=== PATIENT | female | born 1930 | race Caucasian/White ===

== ENCOUNTER 2017-10-30 11:17 | Emergency (ER) | payer MEDICARE ==
[~2017-10-30] VITALS: Ht 162.6 cm; Wt 81.2 kg
[~2017-10-30 11:17] MED LIST: ALAVERT10 MG SL; AMLODIPINE BESY10 MG PO; ASPIR-LOW81 MG PO; CALCIUM 600 +1 EAC8 PO; CENTRUM SILVER1 EAC3 PO; FISH OIL 1,2001 EACH PO; FLUZONE; FOLIC ACID0.4 MG PO; GLUCOPHAGE1000 MG PO; IMODIUM A-D2 M1 PO; LIPITOR20 MG PO; LIPITOR40 MG PO; LISINOPRIL/HCTZ PO; LISINOPRIL10 MG PO; MELOXICAM7.5 MG PO; METFORMIN HCL500 M1 PO; METOPROLOL TART25 MG PO; MUCINEX600 MG PO; PANTOPRAZOLE SO40 MG PO; PNEUMOVAX; TENORMIN50 MG PO; TYLENOL EXTRA500 MG PO; ULTRAM 50MG50 MG PO; VITAMIN E400 UNI1 PO; ZANTAC 7575 MG PO
[2017-10-30 12:04] LABS: BASOPHILS % 0.5 % (0.0-1.0); EOSINOPHILS # (AUTO) 0.2 (0.0-0.4); EOSINOPHILS % 1.9 % (0.0-6.0); HEMATOCRIT 44.9 % (34.2-44.1); HEMOGLOBIN 14.7 g/dL (12.0-16.0); LYMPHOCYTES # (AUTO) 1.2 (1.0-3.2); LYMPHOCYTES % 14.2 % (18.0-39.1); MEAN CORPUSCULAR HEMOGLOBIN 30.1 pg (28-32); MEAN CORPUSCULAR HGB CONC 32.7 g/dL (31-35); MEAN CORPUSCULAR VOLUME 91.8 fL (81-99); MONOCYTES # (AUTO) 0.8 (0.2-0.8); MONOCYTES % 9.5 % (4.4-11.3); NEUTROPHILS # (AUTO) 6.1 (2.1-6.9); NEUTROPHILS % 73.5 % (38.7-80.0); PLATELET COUNT 265 x10e3/uL (140-360); RED BLOOD COUNT 4.89 x10e6/uL (3.6-5.1); RED CELL DISTRIBUTION WIDTH 15.1 % (11.7-14.4)
[2017-10-30 12:44] LABS: ALBUMIN/GLOBULIN RATIO 1.1 (0.8-2.0); ANION GAP 16.8 mmol/L (8-16); CALCIUM 10.6 mg/dL (8.4-10.2); CREATININE, SERUM 1.26 mg/dL (0.57-1.11); POTASSIUM 4.8 mmol/L (3.5-5.1)
[2017-10-30 12:50] LABS: CREATINE KINASE MB 1.5 ng/mL (0-5.0)
--- NOTE | 2017-10-30 14:41 | Diagnostic Imaging Report ---
EXAMINATION: Head CT without contrast HISTORY: Dizziness, nauseated. COMPARISON: None. TECHNIQUE: Multidetector axial images were obtained without contrast from the foramen magnum to the vertex . The images were reconstructed using brain and bone algorithms. Thin section brain images were reformatted into coronal and sagittal planes. Image quality: Motion/streaking artifact limits the evaluation of the skull base and posterior cranial fossa. Dose modulation, iterative reconstruction, and/or weight based adjustment of the mA/kV was utilized to reduce the radiation dose to as low as reasonably achievable. FINDINGS: Parenchyma: 1. No abnormal densities. 2. No mass or hemorrhage. No CT evidence of acute territorial vascular insult. Extra-axial spaces:No abnormal density. No extra-axial fluid collections Brain volume: Normal for age. Ventricles: No hydrocephalus or displacement. Arteries: No density suggestive of thrombus. Dural sinuses: No abnormal density. Extra-axial spaces: No abnormal density. Foramen magnum: No mass, Chiari malformation, or basilar invagination. Sella: No obvious mass. Paranasal/mastoid sinuses: Imaged portions unremarkable. Skull/Scalp: No lytic or blastic lesions. No fractures. IMPRESSION: Normal head CT. Signed by: Dr. Danae Jeong M.D. on 10/30/2017 2:38 PM
--- NOTE | 2017-10-30 14:46 | Diagnostic Imaging Report ---
EXAMINATION: CHEST SINGLE (PORTABLE) INDICATION: \S\ERMD ORDER \[id number] \S\[id number] \S\Y COMPARISON: Chest radiograph 11/18/2016 and 12/30/2012. CT abdomen and pelvis 10/30/2017 FINDINGS: AP view TUBES and LINES: None. LUNGS: Lungs are well inflated. Spiculated nodule in the right lower lobe better seen on same-day CT abdomen and pelvis, new since prior chest radiograph. Left lung is clear. PLEURA: No pleural effusion or pneumothorax. HEART AND MEDIASTINUM: The cardiomediastinal silhouette is unremarkable.. BONES AND SOFT TISSUES: No acute osseous lesion. Soft tissues are unremarkable. UPPER ABDOMEN: No free air under the diaphragm. IMPRESSION: Spiculated nodule in the right lower lobe, not seen on chest radiograph from 11/18/2016. This is seen on same-day CT abdomen pelvis. Consider also obtain CT chest with IV contrast. Signed by: Dr. Cathleen Burnett M.D. on 10/30/2017 2:43 PM
--- NOTE | 2017-10-30 15:17 | Diagnostic Imaging Report ---
EXAMINATION: CT of the abdomen and pelvis without contrast. TECHNIQUE: Spiral CT images of the abdomen and pelvis were performed from the lung bases to the lesser trochanters. No intravenous contrast was given per renal stone protocol. Coronal and sagittal reformatted images were obtained. COMPARISON: None. CLINICAL HISTORY:Abdominal pain, feels dizzy DISCUSSION: ABSENCE OF INTRAVENOUS CONTRAST DECREASES SENSITIVITY FOR DETECTION OF FOCAL LESIONS AND VASCULAR PATHOLOGY. ABDOMEN/PELVIS: LOWER THORAX: Spiculated 1.3 x 2.3 cm x 1.5 soft tissue nodule in the right lower lobe (series 2, image 16), with associated linear opacities extending to the pleural surface. Subsegmental atelectasis or scarring in the left lower lobe. HEPATOBILIARY: No focal hepatic lesions. No intra or extrahepatic biliary ductal dilation. GALLBLADDER: No radio-opaque stones or sludge. No wall thickening. SPLEEN: No splenomegaly. PANCREAS: No focal masses or ductal dilatation. ADRENALS: No adrenal nodules. KIDNEYS/URETERS: No hydronephrosis, stones, or solid mass lesions. PELVIC ORGANS/BLADDER: Bladder is unremarkable. Uterus is absent. No adnexal masses. PERITONEUM/RETROPERITONEUM: No free air or fluid. LYMPH NODES: No intra-abdominal,retroperitoneal, pelvic or inguinal lymphadenopathy. VESSELS: The celiac trunk,superior and inferior mesenteric and bilateral renal arteries are patent The portal, superior mesenteric and splenic veins are patent. GI TRACT: No bowel dilation or evidence of obstruction. Sigmoid diverticulosis, without diverticulitis. Appendix is identified and normal in caliber. BONES AND SOFT TISSUES: No aggressive lytic lesions. Degenerative disc changes in the lumbosacral spine, predominantly at L4-L5. Tiny fat-containing umbilical hernia. IMPRESSION: 1. No acute abdominopelvic abnormalities. 2. 2.3 cm spiculated soft tissue nodule in the right lower lobe, suspicious for primary bronchogenic neoplasm. Confluent scarring is a secondary consideration, particularly if there is prior history of an infectious or inflammatory lesion in this location. Recommend biopsy for tissue diagnosis. Signed by: Dr. Gabriele Adkins M.D. on 10/30/2017 3:14 PM
[2017-10-30 16:38] LABS: CLARITY,URINE CLEAR (CLEAR); COLOR,URINE YELLOW (YELLOW); LEUKOCYTE ESTERASE ,URINE NEGATIVE (NEGATIVE); NITRITE,URINE NEGATIVE (NEGATIVE); PROTEIN,URINE DIPSTICK NEGATIVE (NEGATIVE)
[2017-10-30 16:39] LABS: BILIRUBIN,URINE NEGATIVE (NEGATIVE); KETONES,URINE NEGATIVE (NEGATIVE); URINE UROBILINOGEN 0.2 mg/dL (0.2 - 1)
[2017-10-30 16:51] LABS: EPITHELIAL CELLS,URINE FEW /LPF
[2017-10-30 18:34] VITALS: BP 122/76
== END 2017-10-30 18:33 | disposition home or self-care (01) ==
LOC: ER 11:17
DX: R11.0 Nausea (principal); R53.1 Weakness; C34.90 Malignant neoplasm of unspecified part of unspecified bronchus or lung
CPT/HCPCS: 36415; 70450; 71045; 74176; 80053; 81001; 82550; 82553; 83690; 84484; 85025; 99284

== ENCOUNTER → 2017-11-27 | Outpatient (CLI) | payer MEDICARE ==
[~2017-11-27] MED LIST changes: +FENTANYL CITRATE/PF 100MCG/2 ML INJ ONE; +LIDOCAINE 1% 5ML-MPF INJ ONE; +LIDOCAINE HCL 1% 2 ML AMP ONE; +MIDAZOLAM HCL 2 MG/2 ML VIAL ONE
[2017-11-27 09:10] LABS: INR 0.9; PARTIAL THROMBOPLASTIN TIME 38.9 seconds (23.8-35.5)
--- NOTE | 2017-11-27 12:42 | Diagnostic Imaging Report ---
CT Guided Right Lower Lobe Pulmonary Mass Biopsy Consent: The nature of the procedure, including its risks, benefits and alternatives was explained to the patient who understood and gave consent. Operators: Grace Senior MD Anesthesia: Intravenous conscious sedation was administered by radiology nursing. Continuous hemodynamic and respiratory monitoring was performed, including the use of pulse oximetry. Medications: 10 cc of 1% subcutaneous lidocaine Fentanyl and Versed per nursing administration records Technique/Findings: The patient was placed in the prone position. Scans were obtained through the right lower lobe to localize the right lower lobe pulmonary mass. The skin of the anterior chest was marked, prepped, draped and anesthetized with 1% lidocaine. With CT guidance, a 19-gauge needle was inserted percutaneously via a posterolateral approach into the right lower lobe pulmonary mass. However, due to patient movement at this time, the needle was deflected off trajectory, requiring a second pleural puncture with the introducer needle to obtain appropriate positioning into the mass. Note was made of a trace pneumothorax and small amount of perilesional hemorrhage which was stable on subsequent imaging. Therefore decision made to continue. With CT guidance, aspirates were obtained with a 22-gauge needle and confirmed for adequacy with pathology. With CT guidance, core biopsies were obtained with a 20-gauge core biopsy device. Subsequently, the introducer needle was removed. Patient was taken to recovery area in stable condition. IMPRESSION: Needle aspiration and core biopsy of right lower lobe pulmonary mass as described. Trace pneumothorax and small amount of perilesional hemorrhage, stable on intraprocedural imaging. PLAN: Follow-up chest radiographs at 1, 2, and 4 hours, and then if findings are stable, plan for likely discharge home. Signed by: Dr. Grace Senior MD on 11/27/2017 12:38 PM
--- NOTE | 2017-11-27 12:53 | Diagnostic Imaging Report ---
EXAMINATION: CHEST XRAY POST PROCEDURE INDICATION: Follow-up status post lung biopsy. COMPARISON: CT biopsy of right lower lobe lung nodule 11/27/17. FINDINGS: TUBES and LINES: None. LUNGS: Lungs are hyperinflated. There is patchy and rounded opacity at the right lung base. No evidence of lobar consolidation or pulmonary edema. PLEURA: Trace right basilar pneumothorax. No evidence of pleural effusion. HEART AND MEDIASTINUM: The cardiomediastinal silhouette is unremarkable. BONES AND SOFT TISSUES: No acute osseous lesion. Soft tissues are unremarkable. UPPER ABDOMEN: No free air under the diaphragm. IMPRESSION: Similar appearance of trace right basilar pneumothorax and right basilar opacity, corresponding to known mass and perilesional hemorrhage on same day CT biopsy. Signed by: Dr. Grace Senior MD on 11/27/2017 12:49 PM
--- NOTE | 2017-11-27 13:30 | Diagnostic Imaging Report ---
EXAMINATION: CHEST XRAY POST PROCEDURE INDICATION: Follow-up status post lung biopsy. COMPARISON: CT biopsy of right lower lobe lung nodule 11/27/17 and chest radiograph 11/27/17 at 1156 AM. FINDINGS: TUBES and LINES: None. LUNGS: Lungs are hyperinflated. Again noted is right basilar opacity. No evidence of lobar consolidation or pulmonary edema. PLEURA: Trace right basilar pneumothorax. No evidence of pleural effusion. HEART AND MEDIASTINUM: The cardiomediastinal silhouette is unremarkable. BONES AND SOFT TISSUES: No acute osseous lesion. Soft tissues are unremarkable. UPPER ABDOMEN: No free air under the diaphragm. IMPRESSION: Similar appearance of trace right basilar pneumothorax and right basilar opacity, corresponding to known mass and perilesional hemorrhage on same day CT biopsy. Signed by: Dr. Grace Senior MD on 11/27/2017 1:27 PM
--- NOTE | 2017-11-27 15:20 | Diagnostic Imaging Report ---
EXAMINATION: CHEST XRAY POST PROCEDURE INDICATION: Follow-up status post lung biopsy. COMPARISON: CT biopsy of right lower lobe lung nodule 11/27/17 and chest radiograph 11/27/17 at 1 PM. FINDINGS: TUBES and LINES: None. LUNGS: Lungs are hyperinflated. Again noted is right basilar opacity. No evidence of lobar consolidation or pulmonary edema. PLEURA: Trace right basilar pneumothorax. No evidence of pleural effusion. HEART AND MEDIASTINUM: The cardiomediastinal silhouette is unremarkable. BONES AND SOFT TISSUES: No acute osseous lesion. Soft tissues are unremarkable. UPPER ABDOMEN: No free air under the diaphragm. IMPRESSION: Similar appearance of trace right basilar pneumothorax and right basilar opacity, corresponding to known mass and perilesional hemorrhage on same day CT biopsy. Signed by: Dr. Grace Senior MD on 11/27/2017 3:17 PM
== END ==
LOC: CT 07:34
PROVIDERS: ATTEND Internal Medicine Medical Oncology
DX: R91.8 Other nonspecific abnormal finding of lung field (principal); C34.90 Malignant neoplasm of unspecified part of unspecified bronchus or lung; E08.65 Diabetes mellitus due to underlying condition with hyperglycemia; I10 Essential (primary) hypertension; K21.0 Gastro-esophageal reflux disease with esophagitis
CPT/HCPCS: 10022; 32405; 36415; 71045; 77012; 85049; 85610; 85730; 88112; 88305; J2001; J2250; 99152; 99153

== ENCOUNTER 2018-10-03 09:08 | Emergency (ER) | payer MEDICARE ==
[~2018-10-03] VITALS: Ht 162.6 cm; Wt 75.3 kg
[~2018-10-03 09:08] MED LIST changes: +DIAZEPAM5 MG PO; -FENTANYL CITRATE/PF 100MCG/2 ML INJ ONE; +HYDRALAZINE HCL25 MG PO; -LIDOCAINE 1% 5ML-MPF INJ ONE; -LIDOCAINE HCL 1% 2 ML AMP ONE; -MIDAZOLAM HCL 2 MG/2 ML VIAL ONE; +NITROFURANTOIN100 M1 PO; +PEPCID40 MG PO
--- OUTSIDE RECORDS SUMMARY | 2018-10-03 09:12 | XMS REPORT | Clinical Summary ---
Author Author [facility] Organization [facility] Address Unknown Phone Unavailable Care Team Providers Care [employer] Name Role Phone Justin Jorgensen MD PCP Allergies Comments Active Allergy Reactions Severity Noted Date Haq Hives 02/13/2018 childhood Penicillins Rash Low 02/13/2018 Medications End Date Status Medication Sig Dispensed Refills Start Date Active atorvastatin (LIPITOR) 40 Take 40 mg by 0 MG tablet mouth nightly. Active amLODIPine (NORVASC) 5 mg Take 5 mg by 0 tablet mouth every evening. Active hydrALAZINE (APRESOLINE) Take 25 mg by 0 25 MG tablet mouth 3 (three) times a day. Active metoprolol tartrate Take 25 mg by 0 (LOPRESSOR) 25 mg tablet mouth 2 (two) times a day. Active FAMOTIDINE ORAL Take by mouth 0 as needed. Active metFORMIN (GLUCOPHAGE) Take 500 mg 0 500 mg tablet by mouth 2 (two) times a day with meals. Active carboxymethylcellulose Apply to eye. 0 sodium (REFRESH PLUS OPHT) Active meloxicam (MOBIC) 15 mg Take 15 mg by 0 tablet mouth daily. 03/04/2018 Discontinued lisinopril Take 30 mg by 0 (PRINIVIL,ZESTRIL) 30 mg mouth every tablet morning. 03/04/2018 Discontinued traMADol (ULTRAM) 50 mg Take 50 mg by 0 tablet mouth every 6 (six) hours as needed for moderate pain. 03/18/2018 doxycycline (VIBRAMYCIN) Take 1 28 capsule 0 100 MG capsule capsule (100 9 mg total) by mouth 2 (two) times a day with meals for 14 days. 03/14/2018 traMADol (ULTRAM) 50 mg Take 1 tablet 30 tablet 0 tablet (50 mg total) 9 by mouth every 6 (six) hours as needed for moderate pain for up to 10 days. 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 Encounters Care Team Description Date Type Specialty Parag Presley NP 05/11/2018 Refill Neurology Black Traore MD RIGHT EXPLORATORY THORACOTOMY 02/17/2018 Surgery Cardiothoracic Surgery JohnluisEarlene Alexander NP 02/17/2018 Anesthesia Cardiothoracic Surgery Event Black Traore MD Lung mass 02/17/2018 Hospital Cardiology - Encounter 03/04/2018 Black Traore MD Preop testing 02/13/2018 Hospital Radiology Encounter Black Traore MD Preop testing (Primary Dx) 02/13/2018 Pre-Admit Pre-Admission Testing Testing Appointment after 10/02/2017 Family History Medical History Relation Name Comments Stroke Father Diabetes Maternal Uncle Heart disease Mother Cancer Son testicle w/ mets Relation Name Status Comments Father Maternal Uncle Mother Son (Age 36) Social History Date Tobacco Use Types Packs/Day Years Used Never Smoker Smokeless Tobacco: Never Used Alcohol Use Drinks/Week oz/Week Comments No Alcohol Habits Answer Date Recorded How often do you have a drink containing alcohol? Never 02/13/2018 How many drinks containing alcohol do you have on Not asked a typical day when you are drinking? How often do you have six or more drinks on one Not asked occasion? Sex Assigned at Date Recorded Not on file Industry Job Start Date Occupation Not on file Not on file Not on file Travel End Travel History Travel Start No recent travel history available. Last Filed Vital Signs Time Taken Vital Sign Reading 03/04/2018 7:55 AM [employer] WORK[employer] Blood Pressure 111/55 03/04/2018 7:55 AM [employer] WORKER Pulse 89 03/04/2018 7:55 AM [employer]ADRON WORKER Temperature 36.3 C (97.4 F) 03/04/2018 7:55 AM [employer]AD[employer] WORKER Respiratory Rate 20 03/04/2018 7:55 AM S[employer]ADRON WORKER Oxygen Saturation 91% - Inhaled Oxygen - Concentration 03/04/2018 5:25 AM SQUADRON WORKER Weight 75.8 kg (167 lb) 02/17/2018 6:00 AM SQUADRON WORKER Height 162.6 cm (5' 4") 02/17/2018 6:00 AM SQUADRON WORKER Body Mass Index 28.67 Plan of Treatment Health Maintenance Due Date Last Done Comments SHINGLES VACCINES (#1) 1982 65+ PNEUMOCOCCAL VACCINE 1997 (1 of 2 - PCV13) INFLUENZA VACCINE 10/01/2018 Implants Device Identifier Shelf Expiration Date Model / Serial / Lot Implanted Type Area Manufactur er [id number] / / Clip Ligtng Weck Hemoclip Plus W/ Medical N/A: N/A TELEFLEX Tape Ti Lg - [id number] Clips for MEDICAL Implanted: 02/17/2018 (Quantity not Internal on file) Use [id number] / / Kit Selnt Plrl Air Leak 4ml Strl Surgical N/A: N/A NEOMEND Progel - [id number] Implants; INC Implanted: 02/17/2018 (Quantity not Expanders; on file) Extenders; Surgical Wires Procedures Comments Procedure Name Priority Date/Time Associated Diagnosis XR CHEST 1 VW PORTABLE Routine 03/04/2018 8:28 AM S[employer]ADRON WORKER POC GLUCOSE Routine 03/04/2018 7:55 AM S[employer]ADRON WORKER POC GLUCOSE Routine 03/03/2018 9:15 PM SQUADRON WORKER POC GLUCOSE Routine 03/03/2018 4:47 PM S[employer]ADRON WORKER XR CHEST 1 VW PORTABLE Routine 03/03/2018 2:29 PM SQUADRON WORKER POC GLUCOSE Routine 03/03/2018 11:43 AM SQUADRON WORKER XR CHEST 1 VW PORTABLE Routine 03/03/2018 7:49 AM S[employer]ADRON WORKER POC GLUCOSE Routine 03/03/2018 7:15 AM SQUADRON WORKER HC COMPLETE BLD COUNT Routine 03/03/2018 W/AUTO DIFF 6:47 AM SQUADRON WORKER ESTIMATED GFR Routine 03/03/2018 4:00 AM SQUADRON WORKER BASIC METABOLIC PANEL Routine 03/03/2018 4:00 AM S[employer]ADRON WORKER POC GLUCOSE Routine 03/02/2018 8:51 PM SQUADRON WORKER POC GLUCOSE Routine 03/02/2018 5:27 PM SQUADRON WORKER POC GLUCOSE Routine 03/02/2018 11:42 AM SQUADRON WORKER LACTIC ACID LEVEL, SEPSIS Timed 03/02/2018 - NOW AND REPEAT 2X EVERY 10:46 AM SQUADRON WORKER 3 HOURS BLOOD CULTURE, AEROBIC & Routine 03/02/2018 ANAEROBIC 8:00 AM SQUADRON WORKER POC GLUCOSE Routine 03/02/2018 7:32 AM SQUADRON WORKER XR CHEST 1 VW PORTABLE STAT 03/02/2018 7:24 AM SQUADRON WORKER HC COMPLETE BLD COUNT Timed 03/02/2018 W/AUTO DIFF 6:08 AM SQUADRON WORKER LACTIC ACID LEVEL, SEPSIS Timed 03/02/2018 - NOW AND REPEAT 2X EVERY 6:08 AM SQUADRON WORKER 3 HOURS URINALYSIS SCREEN AND STAT 03/02/2018 MICROSCOPY, WITH REFLEX 4:46 AM SQUADRON WORKER TO CULTURE URINE CULTURE STAT 03/02/2018 4:46 AM SQUADRON WORKER POC GLUCOSE Routine 03/01/2018 8:06 PM SQUADRON WORKER POC GLUCOSE Routine 03/01/2018 12:00 PM SQUADRON WORKER XR CHEST 1 VW PORTABLE Routine 03/01/2018 8:38 AM SQUADRON WORKER POC GLUCOSE Routine 03/01/2018 7:44 AM SQUADRON WORKER HC COMPLETE BLD COUNT Routine 03/01/2018 W/AUTO DIFF 4:30 AM SQUADRON WORKER ESTIMATED GFR Routine 03/01/2018 4:01 AM SQUADRON WORKER BASIC METABOLIC PANEL Routine 03/01/2018 4:01 AM SQUADRON WORKER POC GLUCOSE Routine 03/01/2018 12:16 AM SQUADRON WORKER POC GLUCOSE Routine 02/28/2018 9:00 PM S[employer]RON WORKER POC GLUCOSE Routine 02/28/2018 5:33 PM SQUADRON WORKER XR CHEST 1 VW PORTABLE Timed 02/28/2018 3:26 PM SQUADRON WORKER POC GLUCOSE Routine 02/28/2018 12:06 PM SQUADRON WORKER POC GLUCOSE Routine 02/28/2018 7:55 AM SQUADRON WORKER XR CHEST 1 VW PORTABLE Routine 02/28/2018 6:44 AM SQU[employer]RON WORKER POC GLUCOSE Routine 02/27/2018 8:37 PM SQUADRON WORKER POC GLUCOSE Routine 02/27/2018 5:02 PM SQUADRON WORKER POC GLUCOSE Routine 02/27/2018 11:30 AM SQUADRON WORKER XR CHEST 1 VW PORTABLE Routine 02/27/2018 8:27 AM SQUADRON WORKER POC GLUCOSE Routine 02/27/2018 8:27 AM SQUADRON WORKER POC GLUCOSE Routine 02/26/2018 6:02 PM SQUADRON WORKER POC GLUCOSE Routine 02/26/2018 12:12 PM SQUADRON WORKER XR CHEST 1 VW PORTABLE Routine 02/26/2018 12:07 PM SQUADRON WORKER XR CHEST 1 VW PORTABLE Routine 02/26/2018 8:22 AM SQUADRON WORKER POC GLUCOSE Routine 02/26/2018 7:36 AM SQUADRON WORKER HC COMPLETE BLD COUNT Routine 02/26/2018 W/AUTO DIFF 5:13 AM SQUADRON WORKER ESTIMATED GFR Routine 02/26/2018 4:34 AM SQUADRON WORKER BASIC METABOLIC PANEL Routine 02/26/2018 4:34 AM SQUADRON WORKER POC GLUCOSE Routine 02/25/2018 8:54 PM SQUADRON WORKER POC GLUCOSE Routine 02/25/2018 4:24 PM SQUADRON WORKER POC GLUCOSE Routine 02/25/2018 11:50 AM SQUADRON WORKER XR CHEST 1 VW PORTABLE Routine 02/25/2018 9:08 AM SQUADRON WORKER POC GLUCOSE Routine 02/25/2018 7:49 AM SQUADRON WORKER POC GLUCOSE Routine 02/24/2018 9:01 PM SQUADRON WORKER POC GLUCOSE Routine 02/24/2018 5:08 PM SQUADRON WORKER POC GLUCOSE Routine 02/24/2018 12:22 PM SQUADRON WORKER XR CHEST 1 VW PORTABLE Routine 02/24/2018 8:03 AM SQUADRON WORKER POC GLUCOSE Routine 02/24/2018 5:05 AM SQUADRON WORKER POC GLUCOSE Routine 02/24/2018 1:13 AM SQUADRON WORKER POC GLUCOSE Routine 02/23/2018 9:24 PM SQUADRON WORKER POC GLUCOSE Routine 02/23/2018 5:40 PM SQUADRON WORKER POC GLUCOSE Routine 02/23/2018 11:45 AM SQUADRON WORKER XR CHEST 1 VW PORTABLE Routine 02/23/2018 9:45 AM SQUADRON WORKER POC GLUCOSE Routine 02/23/2018 7:38 AM SQUADRON WORKER POC GLUCOSE Routine 02/22/2018 9:06 PM SQUADRON WORKER POC GLUCOSE Routine 02/22/2018 4:52 PM SQUADRON WORKER XR CHEST 1 VW PORTABLE Routine 02/22/2018 1:43 PM SQUADRON WORKER POC GLUCOSE Routine 02/22/2018 11:57 AM SQUADRON WORKER POC GLUCOSE Routine 02/22/2018 7:43 AM SQUADRON WORKER ESTIMATED GFR Routine 02/22/2018 4:00 AM SQUADRON WORKER BASIC METABOLIC PANEL Routine 02/22/2018 4:00 AM SQUADRON WORKER POC GLUCOSE Routine 02/21/2018 9:22 PM SQUADRON WORKER POC GLUCOSE Routine 02/21/2018 5:32 PM SQUADRON WORKER POC GLUCOSE Routine 02/21/2018 11:41 AM SQUADRON WORKER POC GLUCOSE Routine 02/21/2018 7:28 AM SQUADRON WORKER XR CHEST 1 VW PORTABLE Routine 02/21/2018 6:38 AM SQUADRON WORKER CBC HEMOGRAM Routine 02/21/2018 6:00 AM SQUADRON WORKER ESTIMATED GFR Routine 02/21/2018 4:00 AM SQUADRON WORKER MAGNESIUM LEVEL Routine 02/21/2018 4:00 AM SQUADRON WORKER BASIC METABOLIC PANEL Routine 02/21/2018 4:00 AM SQUADRON WORKER POC GLUCOSE Routine 02/20/2018 9:05 PM SQUADRON WORKER POC GLUCOSE Routine 02/20/2018 5:33 PM SQUADRON WORKER POC GLUCOSE Routine 02/20/2018 11:28 AM SQUADRON WORKER ECG 12-LEAD Routine 02/20/2018 9:21 AM SQUADRON WORKER XR CHEST 1 VW PORTABLE Routine 02/20/2018 8:13 AM SQUADRON WORKER POC GLUCOSE Routine 02/20/2018 7:14 AM SQUADRON WORKER POC GLUCOSE Routine 02/20/2018 5:40 AM SQUADRON WORKER CBC HEMOGRAM Routine 02/20/2018 4:30 AM SQUADRON WORKER ESTIMATED GFR Routine 02/20/2018 4:00 AM SQUADRON WORKER BASIC METABOLIC PANEL Routine 02/20/2018 4:00 AM SQUADRON WORKER POC GLUCOSE Routine 02/19/2018 8:26 PM SQUADRON WORKER POC GLUCOSE Routine 02/19/2018 5:13 PM SQUADRON WORKER FL MODIFIED BARIUM Routine 02/19/2018 SWALLOW 3:20 PM SQUADRON WORKER POC GLUCOSE Routine 02/19/2018 12:10 PM SQUADRON WORKER ECG 12-LEAD Routine 02/19/2018 9:43 AM S[employer]ADRON WORKER POC GLUCOSE Routine 02/19/2018 7:47 AM SQUADRON WORKER XR CHEST 1 VW PORTABLE Routine 02/19/2018 7:05 AM S[employer]RON WORKER POC GLUCOSE Routine 02/19/2018 6:22 AM SQUADRON WORKER CBC HEMOGRAM Routine 02/19/2018 2:10 AM SQUADRON WORKER ESTIMATED GFR Routine 02/19/2018 12:00 AM S[employer]ADRON WORKER PHOSPHORUS LEVEL Routine 02/19/2018 12:00 AM SQUADRON WORKER IONIZED CALCIUM Routine 02/19/2018 12:00 AM S[employer]ADRON WORKER MAGNESIUM LEVEL Routine 02/19/2018 12:00 AM SQUADRON WORKER BASIC METABOLIC PANEL Routine 02/19/2018 12:00 AM SQUADRON WORKER POC GLUCOSE Routine 02/18/2018 8:42 PM SQUADRON WORKER POC GLUCOSE Routine 02/18/2018 4:04 PM S[employer]ADRON WORKER POC GLUCOSE Routine 02/18/2018 12:24 PM SQUADRON WORKER POC GLUCOSE Routine 02/18/2018 7:55 AM S[employer]ADRON WORKER XR CHEST 1 VW PORTABLE Routine 02/18/2018 5:24 AM S[employer]ADRON WORKER ECG 12-LEAD Routine 02/18/2018 4:53 AM S[employer]ADRON WORKER POC GLUCOSE Routine 02/18/2018 4:05 AM S[employer]RON WORKER ESTIMATED GFR Routine 02/18/2018 12:30 AM SQUADRON WORKER PROTHROMBIN TIME WITH INR Routine 02/18/2018 12:30 AM S[employer]RON WORKER PHOSPHORUS LEVEL Routine 02/18/2018 12:30 AM S[employer]ADRON WORKER PARTIAL THROMBOPLASTIN Routine 02/18/2018 TIME (PTT) 12:30 AM SQUADRON WORKER IONIZED CALCIUM Routine 02/18/2018 12:30 AM SQUADRON WORKER CBC HEMOGRAM Routine 02/18/2018 12:30 AM S[employer]RON WORKER BASIC METABOLIC PANEL Routine 02/18/2018 12:30 AM SQUADRON WORKER MAGNESIUM LEVEL Routine 02/18/2018 12:30 AM SQUADRON WORKER POC GLUCOSE Routine 02/18/2018 12:12 AM S[employer]RON WORKER POC GLUCOSE Routine 02/17/2018 8:22 PM S[employer]RON WORKER ECG 12-LEAD Routine 02/17/2018 6:09 PM S[employer]RON WORKER POC GLUCOSE Routine 02/17/2018 5:42 PM S[employer]RON WORKER MISCELLANEOUS REFERRAL Routine 02/17/2018 TEST 1:25 PM SQUADRON WORKER BRAF, PCR Routine 02/17/2018 1:25 PM S[employer]RON WORKER POC GLUCOSE Routine 02/17/2018 12:59 PM S[employer]RON WORKER XR CHEST 1 VW PORTABLE Routine 02/17/2018 12:55 PM S[employer]RON WORKER IONIZED CALCIUM, ARTERIAL Routine 02/17/2018 12:52 PM S[employer] WORKER ESTIMATED GFR Routine 02/17/2018 12:52 PM S[employer] WORKER ARTERIAL BLOOD GAS Routine 02/17/2018 12:52 PM S[employer] WORKER PARTIAL THROMBOPLASTIN Routine 02/17/2018 TIME (PTT) 12:52 PM SQUADRON WORKER PROTHROMBIN TIME WITH INR Routine 02/17/2018 12:52 PM S[employer]RON WORKER PHOSPHORUS LEVEL Routine 02/17/2018 12:52 PM SQUADRON WORKER MAGNESIUM LEVEL Routine 02/17/2018 12:52 PM S[employer]RON WORKER HC COMPLETE BLD COUNT Routine 02/17/2018 W/AUTO DIFF 12:52 PM SQUADRON WORKER BASIC METABOLIC PANEL Routine 02/17/2018 12:52 PM SQUADRON WORKER GLUCOSE LEVEL, SYRINGE STAT 02/17/2018 11:45 AM SQUADRON WORKER HEMOGLOBIN, SYRINGE STAT 02/17/2018 11:45 AM SQUADRON WORKER IONIZED CALCIUM, ARTERIAL STAT 02/17/2018 11:45 AM SQUADRON WORKER SODIUM LEVEL, SYRINGE STAT 02/17/2018 11:45 AM SQUADRON WORKER POTASSIUM, SYRINGE STAT 02/17/2018 11:45 AM SQUADRON WORKER ARTERIAL BLOOD GAS, STAT 02/17/2018 CORRECTED 11:45 AM SQUADRON WORKER GLUCOSE LEVEL, SYRINGE STAT 02/17/2018 11:00 AM S[employer]RON WORKER HEMOGLOBIN, SYRINGE STAT 02/17/2018 11:00 AM SQUADRON WORKER IONIZED CALCIUM, ARTERIAL STAT 02/17/2018 11:00 AM S[employer]RON WORKER POTASSIUM, SYRINGE STAT 02/17/2018 11:00 AM SQUADRON WORKER SODIUM LEVEL, SYRINGE STAT 02/17/2018 11:00 AM SQUADRON WORKER ARTERIAL BLOOD GAS, STAT 02/17/2018 CORRECTED 11:00 AM S[employer]RON WORKER GLUCOSE LEVEL, SYRINGE STAT 02/17/2018 10:20 AM SQUADRON WORKER IONIZED CALCIUM, ARTERIAL STAT 02/17/2018 10:20 AM SQUADRON WORKER HEMOGLOBIN, SYRINGE STAT 02/17/2018 10:20 AM SQUADRON WORKER POTASSIUM, SYRINGE STAT 02/17/2018 10:20 AM SQUADRON WORKER SODIUM LEVEL, SYRINGE STAT 02/17/2018 10:20 AM SQUADRON WORKER ARTERIAL BLOOD GAS, STAT 02/17/2018 CORRECTED 10:20 AM SQUADRON WORKER CENTRAL LINE Routine 02/17/2018 9:53 AM SQUADRON WORKER ARTERIAL LINE Routine 02/17/2018 9:52 AM SQUADRON WORKER SURGICAL PATHOLOGY Routine 02/17/2018 REQUEST 9:43 AM S[employer]ADRON WORKER SURGICAL PATHOLOGY Routine 02/17/2018 REQUEST 9:43 AM SQUADRON WORKER SURGICAL PATHOLOGY Routine 02/17/2018 REQUEST 9:43 AM S[employer]ADRON WORKER SURGICAL PATHOLOGY Routine 02/17/2018 REQUEST 9:43 AM S[employer]ADRON WORKER SURGICAL PATHOLOGY Routine 02/17/2018 REQUEST 9:43 AM SQUADRON WORKER ANESTHESIA EPIDURAL BLOCK Routine 02/17/2018 9:31 AM SQUADRON WORKER OK AN ELECTIVE Routine 02/17/2018 ENDOTRACHEAL AIRWAY 9:29 AM SQUADRON WORKER IONIZED CALCIUM, ARTERIAL STAT 02/17/2018 8:45 AM SQUADRON WORKER GLUCOSE LEVEL, SYRINGE STAT 02/17/2018 8:45 AM SQUADRON WORKER HEMOGLOBIN, SYRINGE STAT 02/17/2018 8:45 AM SQUADRON WORKER POTASSIUM, SYRINGE STAT 02/17/2018 8:45 AM SQUADRON WORKER SODIUM LEVEL, SYRINGE STAT 02/17/2018 8:45 AM SQUADRON WORKER ARTERIAL BLOOD GAS, STAT 02/17/2018 CORRECTED 8:45 AM SQUADRON WORKER XR CHEST 2 VW Routine 02/13/2018 Preop testing 3:44 PM S[employer]ADRON WORKER ECG PRE/POST OP Routine 02/13/2018 Preop testing 2:50 PM SQUADRON WORKER PREPARE RBC Routine 02/13/2018 2:36 PM S[employer]ADRON WORKER ESTIMATED GFR Routine 02/13/2018 2:36 PM S[employer]ADRON WORKER HEMOGLOBIN A1C Routine 02/13/2018 Preop testing 2:36 PM SQUADRON WORKER TYPE AND SCREEN Routine 02/13/2018 Preop testing 2:36 PM S[employer]ADRON WORKER PROTHROMBIN TIME WITH INR Routine 02/13/2018 Preop testing 2:36 PM SQUADRON WORKER PARTIAL THROMBOPLASTIN Routine 02/13/2018 Preop testing TIME (PTT) 2:36 PM SQUADRON WORKER BASIC METABOLIC PANEL Routine 02/13/2018 Preop testing 2:36 PM SQUADRON WORKER HC COMPLETE BLD COUNT Routine 02/13/2018 Preop testing W/AUTO DIFF 2:36 PM SQUADRON WORKER after 10/02/2017 Results * XR Chest 1 Vw Portable (03/04/2018 8:28 AM SQUADRON WORKER) Only the most recent of 19 results within the time period is included. Specimen Narrative Performed At EXAMINATION: XR CHEST 1 VW PORTABLE [facility]ANT CLINICAL HISTORY: ICU ptrecent chest tube removal COMPARISON:Chest AP 03/03/2017 IMPRESSION: No significant change. 1.5 cm right apical pneumothorax. Small right pleural effusion with basilar atelectasis. No focal consolidation or pleural effusion of the left lung. Top normal heart size. Postsurgical changes to the chest. Dextroscoliosis thoracic spine. Multiple right rib fractures. Bilateral AC joint osteoarthrosis. [id number] Procedure Note Interface, Radiology Results Incoming - 03/04/2018 8:36 AM SQUADRON WORKER EXAMINATION: XR CHEST 1 VW PORTABLE CLINICAL HISTORY: ICU pt recent chest tube removal COMPARISON: Chest AP 03/03/2017 IMPRESSION: No significant change. 1.5 cm right apical pneumothorax. Small right pleural effusion with basilar atelectasis. No focal consolidation or pleural effusion of the left lung. Top normal heart size. Postsurgical changes to the chest. Dextroscoliosis thoracic spine. Multiple right rib fractures. Bilateral AC joint osteoarthrosis. [id number] Performing Organization Address City/State/Zipcode Phone Number [facility] [address] [place] [address] * POC glucose (03/04/2018 7:55 AM SQUADRON WORKER) Only the most recent of 64 results within the time period is included. POC glucose 132 (H) 65 - 99 mg/dL [place] Comment: [facility] No Action Needed HOSPITAL Meter ID: [id number] Medical Insurance Coder: Greg Barney Specimen Performing Organization Address City/State/Zipcode Phone Number [facility] DEPARTMENT OF [address] [place] [address] PATHOLOGY AND GENOMIC MEDICINE [address] * CBC with platelet and differential (03/03/2018 6:47 AM SQUADRON WORKER) Only the most recent of 6 results within the time period is included. [facility] WBC 8.59 4.50 - 11.00 k/uL [facility] RBC 3.51 (L) 4.20 - 5.50 m/uL [facility] HGB 10.6 (L) 12.0 - 16.0 g/dL [facility] HCT 33.6 (L) 37.0 - 47.0 % [facility] MCV 95.7 82.0 - 100.0 fL [facility] MCH 30.2 27.0 - 34.0 pg [facility] MCHC 31.5 31.0 - 37.0 g/dL [facility] RDW - SD 50.8 37.0 - 55.0 fL [facility] MPV 10.9 8.8 - 13.2 fL [facility] Platelet count 296 150 - 400 k/uL [facility] Nucleated RBC 0.00 /100 WBC [facility] Neutrophils 58.7 39.0 - 69.0 % [facility] Lymphocytes 17.1 (L) 25.0 - 45.0 % [facility] Monocytes 20.6 (H) 0.0 - 10.0 % [facility] Eosinophils 2.4 0.0 - 5.0 % [facility] Basophils 0.6 0.0 - 1.0 % [facility] Immature 0.6Comment: "Immature 0.0 - 1.0 % [place] granulocytes granulocytes" (promyelocytes, YAZIDI myelocytes, metamyelocytes) [facility] Specimen Blood Performing Organization Address City/State/Zipcode Phone Number [facility] DEPARTMENT OF [address] [place] [address] PATHOLOGY AND GENOMIC MEDICINE [address] * Estimated GFR (03/03/2018 4:00 AM SQUADRON WORKER) Only the most recent of 10 results within the time period is included. [facility] Estimated GFR 44 (A) mL/min/1.73 m2 [place] Comment: [facility] rpretation G1 >=90 Normal or high G2 60-89Mildly decreased [id number] Mildly to moderately decreased [id number] Moderately to severely decreased G4 15-29Severely decreased G5 <15Kidney failure The eGFR was calculated using the Chronic Kidney Disease Epidemiology Collaboration (CKD-EPI) equation. Interpretation is based on recommendations of the National Kidney Foundation-Kidney Disease Outcomes Quality Initiative (NKF-KDOQI) published in 2014. Specimen Plasma specimen Performing Organization Address City/[facility] Phone Number [facility] [place] [address] PATHOLOGY AND [facility] MEDICINE [address] * Basic metabolic panel (03/03/2018 4:00 AM SQUADRON WORKER) Only the most recent of 10 results within the time period is included. Pathologist [facility] Sodium 136 135 - 148 mEq/L [facility] Potassium 4.2 3.5 - 5.0 mEq/L [facility] Chloride 98 98 - 112 mEq/L [facility] CO2 27 24 - 31 mEq/L [facility] Anion gap 11@ANIO 7 - 15 mEq/L [facility] BUN 19 8 - 23 mg/dL [facility] Creatinine 1.14 (H) 0.50 - 0.90 mg/dL [facility] Glucose 127 (H) 65 - 99 mg/dL [facility] Calcium 8.8 8.8 - 10.2 mg/dL [facility] Specimen Plasma specimen Performing Organization Address [facility] Phone Number [facility] [place] [place] [address] PATHOLOGY AND [facility] MEDICINE [address] * Lactic acid level, SEPSIS - Now and repeat 2x every 3 hours (03/02/2018 10:46 AM SQUADRON WORKER) Only the most recent of 2 results within the time period is included. Pathologist [facility] Lactic acid 1.4 0.5 - 2.2 mmol/L [facility] Specimen Blood Performing Organization Address City/[facility] Phone Number [facility] [place] [place] [address] PATHOLOGY AND [facility] MEDICINE [address] * Blood culture, aerobic & anaerobic (03/02/2018 8:00 AM SQUADRON WORKER) Blood culture No growth after 5 days of [place] isolate incubation. [facility] Comment: HOSPITAL Specimen Information Specimen Source: Blood Specimen Site: Peripheral Arm Left Specimen Blood Performing Organization Address City/[facility]/Zipcode Phone Number [facility] DEPARTMENT OF [address] [place] [id number] PATHOLOGY AND GENOMIC MEDICINE [address] * Urinalysis screen and microscopy, with reflex to culture (03/02/2018 4:46 AM SQUADRON WORKER) Specimen site Clean catch [facility] Color, UA Yellow [facility] Appearance, UA Clear [facility] Specific 1.018 1.001 - 1.035 [place] gravity, [facility] pH, UA 5.0 5.0 - 8.5 [facility] Protein, UA Negative Negative [facility] Glucose, UA Negative Negative [facility] Ketones, UA Negative Negative [facility] Bilirubin, UA Negative Negative [facility] Blood, UA Negative Negative [facility] Nitrite, UA Negative Negative [facility] Urobilinogen, Footnote <2.0 [place] UA Comment: Y[facility] UNABLE TO REPORT HOSPITAL Corrected result; previously reported as 2.0 on 03/02/2018 at 06:05 by I/AUT Leukocyte Negative Negative [place] [facility] Epithelial 1 /HPF [place] cells, [facility] WBC, UA 4 0 - 4 /HPF [facility] RBC, UA 1 0 - 5 /HPF [facility] Bacteria, UA None seen None seen [facility] Yeast, UA None seen [facility] Yeast with None seen [place] [facility] Hyaline casts, 1 /LPF [facility] Specimen Urine Performing Organization Address City/[facility]/Zipcode Phone Number [facility] DEPARTMENT OF [address] [place] [address] PATHOLOGY AND GENOMIC MEDICINE [address] * Urine culture (03/02/2018 4:46 AM [employer]) Urine culture SEE COMMENTComment: [place] Bacteriuria screen negative. [facility] Specimen Performing Organization Address City/[facility]/Zipcode Phone Number [facility] DEPARTMENT [address] [address] PATHOLOGY [place] [address] HOSPITAL * CBC hemogram (02/21/2018 6:00 AM SQUADRON WORKER) Only the most recent of 4 results within the time period is included. WBC 9.10 4.50 - 11.00 k/uL [facility] RBC 3.92 (L) 4.20 - 5.50 m/uL [facility] HGB 12.0 12.0 - 16.0 g/dL [facility] HCT 37.6 37.0 - 47.0 % [facility] MCV 95.9 82.0 - 100.0 fL [facility] MCH 30.6 27.0 - 34.0 pg [facility] MCHC 31.9 31.0 - 37.0 g/dL [facility] RDW - SD 50.4 37.0 - 55.0 fL [facility] MPV 11.0 8.8 - 13.2 fL [facility] Platelet count 197 150 - 400 k/uL [facility] Nucleated RBC 0.00 /100 WBC [facility] Specimen Blood Performing Organization Address City/[facility] Phone Number [facility] [place] [address] PATHOLOGY AND GENOMIC MEDICINE [address] * Magnesium level (02/21/2018 4:00 AM SQUADRON WORKER) Only the most recent of 4 results within the time period is included. [facility] Magnesium 1.9 1.6 - 2.4 mg/dL [facility] Specimen Plasma specimen Performing Organization Address City/[facility] Phone Number [facility] [place] [address] PATHOLOGY AND GENOMIC MEDICINE [address] * ECG 12 lead (02/20/2018 9:21 AM SQUADRON WORKER) Only the most recent of 4 results within the time period is included. 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 Fluoroscopy time: 0.9 minutes FINDINGS: The patient swallowed varying consistencies of barium under direct lateral fluoroscopic evaluation. The study was performed in conjunction with speech pathology. IMPRESSION: With thin barium mixture there was minimal penetration which improved with the chin tuck maneuver.All other consistencies of barium were satisfactorily swallowed.Please refer to Speech Pathology report for further details. [facility]-[id number] Procedure Note Interface, Radiology Results Incoming - 02/19/2018 5:15 PM SQUADRON WORKER EXAMINATION: FL MODIFIED BARIUM SWALLOW CLINICAL HISTORY: Dysphagia known cause COMPARISON: None. Fluoroscopy time: 0.9 minutes FINDINGS: The patient swallowed varying consistencies of barium under direct lateral fluoroscopic evaluation. The study was performed in conjunction with speech pathology. IMPRESSION: With thin barium mixture there was minimal penetration which improved with the chin tuck maneuver. All other consistencies of barium were satisfactorily swallowed. Please refer to Speech Pathology report for further details. [facility]-[id number] Performing Organization Address [facility] Phone Number [facility] [address] [place] [address] * Phosphorus level (02/19/2018 12:00 AM SQUADRON WORKER) Only the most recent of 3 results within the time period is included. Phosphorus 2.8 2.4 - 4.5 mg/dL [facility] Specimen Plasma specimen Performing Organization Address City/[facility]/Zipcode Phone Number [facility] DEPARTMENT OF [address] [place] [address] PATHOLOGY AND GENOMIC MEDICINE [address] * Ionized calcium (02/19/2018 12:00 AM SQUADRON WORKER) Only the most recent of 2 results within the time period is included. [facility] pH 7.49 [facility] Ionized calcium 1.10 (L) 1.11 - 1.32 mmol/L [facility] Specimen Plasma specimen Performing Organization Address City/[facility] Phone Number [facility] [place] [address] PATH[address] * Partial thromboplastin time, activated (02/18/2018 12:30 AM SQUADRON WORKER) Only the most recent of 3 results within the time period is included. [facility] PTT 35.8 23.0 - 36.0 sec [place] Comment: YAZIDI PTT therapeutic range for HOSPITAL unfractionated heparin is 61.0-112.0 seconds which corresponds to Anti-Xa 0.3-0.7 U/ml. Specimen Blood Performing Organization Address [facility] Phone Number [facility] DEPARTMENT [address] * Prothrombin time with INR (02/18/2018 12:30 AM SQUADRON WORKER) Only the most recent of 3 results within the time period is included. [facility] Prothrombin 14.5 11.5 - 14.5 sec [facility] INR 1.2 [place] Comment: YAZIDI The International Normalized HOSPITAL Ratio (INR) is a therapeutic monitoring tool for patients who are stable on oral anticoagulant therapy. An INR of 2.0-3.0 is suggested for deep vein thrombosis/pulmonary embolism. Specimen Blood Performing Organization Address City/[facility] Phone Number [facility] [place] [place] [address] PATH[address] * BRAF, PCR (02/17/2018 1:25 PM SQUADRON WORKER) [facility] BRAF, PCR Wild Type [facility] BRAF, PCR See link below for PDF Lab [place] ReportComment: Case Number: YAZIDI [id number] [facility] Specimen Narrative Performed At [email or web address] [id number] [facility] METHODOLOGY: For surgical specimens, manual microdissection was performed on block D7 (tumor, 50%). Specimens with the minimum of 50% tumor cells in a microdissection target are accepted for the analysis. DNA was amplified with primers flanking the reported gene sequences. DNA sequences were determined by next generation sequencing. Variants were determined relative to the human reference genome hg19. Performing Organization Address City/[facility]/Zipcode Phone Number [facility] DEPARTMENT OF [address] [place] [address] PATHOLOGY AND GENOMIC MEDICINE [address] [address] [facility] * Miscellaneous referral test (02/17/2018 1:25 PM SQUADRON WORKER) Pathologist [facility] Misc test name [employer] [facility] Mis test see note [facility] result Comment: MET FISH Sample type: Paraffin, lung Case# [id number] RESULTS: NEGATIVE Interpretation: MET(7q31) signals per nucleus: 1.7 CEN7 signals per nucleus: 2.3 MET-CEN7 signal ratio: 0.7 An H&E stained slide was reviewed by a pathologist to identify traget areas containing invasive tumor. FISH analysis was performed within the marked target areas using a dual-probe FISH assay to detect MET overexpression. Results show no evidence of MET amplification with a MET/CEN7 ratio of <2.0. This is a NEGATIVE result. This MET FISH assay was scored manually by a certified swine genetics researcher. Two or more independent areas containing invasive tumor were analyzed and the technical results underwent further review for quality control coordinator purposes. Reference range: Positive: MET(7q31) to CEN7 signal ration is >/=2.0 or when 10% of tumor cells contain clusters of >15 copies per cell of MET (7q31) signals. Negative: MET(7q31) to CEN7 signal ratio is <2.0 Equivocal: MET copy number >/=5.0 and MET/CEN7 ratio <2.0 Probe set details: MET: nuc raúl(CEN7x2.3,METx1.7)[50] Nuclei scored: 50 Test(s) performed by: [facility] [place] Specimen Narrative Performed At [employer] MET [facility] [id number] Performing Organization Address City/State/Zipcode Phone Number [facility] [address] [place] [address] [facility] [address] [place] [address] * Ionized calcium, arterial (02/17/2018 12:52 PM SQUADRON WORKER) Only the most recent of 5 results within the time period is included. Ionized 1.22 1.11 - 1.32 mmol/L [facility] Specimen Blood Performing Organization Address City/[facility] Phone Number [facility] [place] [place] [address] PATHOLOGY AND [facility] MEDICINE [address] * Arterial blood gas (02/17/2018 12:52 PM SQUADRON WORKER) pH, arterial 7.36 7.35 - 7.45 [facility] pCO2, arterial 44 35 - 45 mmHg [facility] pO2, arterial 332 (H) 80 - 90 mmHg [facility] Bicarbonate, 24.1 21.0 - 28.0 mmol/L [facility] Base excess, -1 -2 - 2 mEq/L [facility] O2 saturation, 100 95 - 100 % [facility] Specimen Blood Performing Organization Address City/[facility] Phone Number [facility] [place] [address] PATHOLOG[address] * Sodium level, syringe (02/17/2018 11:45 AM SQUADRON WORKER) Only the most recent of 4 results within the time period is included. Sodium, syringe 140 135 - 148 mEq/L [facility] Specimen Blood Performing Organization Address City/[facility] Phone Number [facility] [place] [address] PATHOLOGY AND [facility] MEDICINE [address] * Potassium, syringe (02/17/2018 11:45 AM SQUADRON WORKER) Only the most recent of 4 results within the time period is included. Potassium, 3.5 3.5 - 5.0 mEq/L [facility] Specimen Blood Performing Organization Address City/[facility]/Zipcode Phone Number [facility] [place] [place] [address] PATHOLOGY AND GENOMIC MEDICINE [address] * Hemoglobin, syringe (02/17/2018 11:45 AM SQUADRON WORKER) Only the most recent of 4 results within the time period is included. Hemoglobin, 9.6 (L) 12.0 - 16.0 g/dL [facility] Specimen Blood Performing Organization Address City/[facility] Phone Number [facility] [place] [place] [address] PATHOLOGY AND [facility] MEDICINE [address] * Glucose level, syringe (02/17/2018 11:45 AM SQUADRON WORKER) Only the most recent of 4 results within the time period is included. Glucose, 182 (H) 65 - 99 mg/dL [facility] Specimen Blood Performing Organization Address [facility] Phone Number [facility] [place] [address] PATHOLOG[address] * Arterial blood gas, corrected (02/17/2018 11:45 AM SQUADRON WORKER) Only the most recent of 4 results within the time period is included. pH, arterial 7.37 7.35 - 7.45 [facility] pCO2, arterial 38 35 - 45 mmHg [facility] pO2, arterial 257 (H) 80 - 90 mmHg [facility] Temperature, 37.0 Degrees C [place] Celus [facility] O2 saturation, 100 95 - 100 % [facility] pH, arterial 7.37 [facility] pCO2, arterial 38 mmHg [facility] pO2, arterial 257 mmHg [facility] Base excess, -3 (L) -2 - 2 mEq/L [facility] Specimen Blood Performing Organization Address [facility] Phone Number [facility] [place] [address] PATHOLOGY AND [facility] [address] * Central line (02/17/2018 9:53 AM SQUADRON WORKER) Narrative Performed At Farhad Bruno MD 02/17/20189:54 AM Central line Performed by: Farhad Bruno MD Authorized by: Nimco Moy MD Patient Location:OR Staff: Anesthesiologist:Nimco Moy MD Resident/INSIDE SALES SPECIALIST/AA:Farhad Bruno MD Performed by:Resident/INSIDE SALES SPECIALIST/AA and anesthesiologist Preprocedure:patient identified, IV checked, site and side verified, risks and benefits discussed, procedure verified, surgical consent complete, patient position confirmed, monitors and equipment checked and pre-op evaluation complete MSBT: antiseptic used during central venous catheter insertion, all elements of maximal sterile barrier technique followed, hand hygiene performed prior to central venous catheter insertion, cap/gown used by other personnel during central venous catheter insertion, solutions labeled and all ports not used during insertion clamped Indications: Indications:Vascular access Anesthesia: Anesthesia:General Procedure details: Patient position:Supine Catheter Type:Double lumen Catheter Size:7 Fr Catheter Site: internal jugular vein Catheter site laterality:Right Ultrasound guidance used: Yes Ultrasound image saved: No Number of attempts:1 Successful placement: Yes Guidewire removal: Guidewire removal is confirmed Post-procedure: Post-procedure: line sutured and sterile dressing applied per protocol Post-procedure:Blood cleaned with CHG Assessment:Blood return through all ports and free fluid flow Patient tolerance:Patient tolerated the procedure well with no immediate complications * Arterial line (02/17/2018 9:52 AM SQUADRON WORKER) Narrative Performed At Farhad Bruno MD 02/17/20189:54 AM Arterial line Performed by: Farhad Bruno MD Authorized by: Nimco Moy MD Patient Location:OR Staff: Anesthesiologist:Nimco Moy MD Resident/INSIDE SALES SPECIALIST/AA:Farhad Bruno MD Performed by:Anesthesiologist Pre-procedure: patient identified, IV checked, site and side verified, risks and benefits discussed, procedure verified, surgical consent complete, patient position confirmed, monitors and equipment checked and pre-op evaluation complete MSBT: antiseptic used, all elements of maximal sterile barrier technique followed, hand hygiene performed and solutions labeled Indications: Indications: multiple ABGs and hemodynamic monitoring Anesthesia: Anesthesia:General Procedure Details: Arterial Line placement:Placed pre-induction Line placement site:Radial Line placement side:Left Arterial line gauge:20 G Number of attempts:1 Ultrasound guidance used: Yes Post-procedure: Post-procedure:Line sutured and sterile dressing applied Post procedure circulation, sensation, movement:Normal Patient tolerance:Patient tolerated the procedure well with no immediate complications * Surgical pathology request (02/17/2018 9:43 AM SQUADRON WORKER) Only the most recent of 5 results within the time period is included. [facility] DEPARTMENT OF PATHOLOGY AND GENOMIC MEDICINE Surgical See link below for PDF Lab [facility] DEPARTMENT pathology Report OF PATHOLOGY report AND GENOMIC MEDICINE Result status This is Supplemental Report [facility] DEPARTMENT for [id number] OF PATHOLOGY AND GENOMIC MEDICINE Specimen Narrative Performed At [facility] DEPARTMENT OF [id number] PATHOLOGY AND GENOMIC MEDICINE Performing Organization Address City/State/Zipcode Phone Number [facility] DEPARTMENT OF [address] [place] [address] PATHOLOGY AND GENOMIC MEDICINE * Epidural Block (02/17/2018 9:31 AM SQUADRON WORKER) Narrative Performed At Farhad Bruno MD 02/17/2018 12:51 PM Epidural Block Performed by: Farhad Bruno MD Authorized by: Nimco Moy MD Patient Location:Pre-op Start Time:02/17/2018 8:00 AM End Time:02/17/2018 8:10 AM Anesthesiologist:Nimco Moy MD Resident/INSIDE SALES SPECIALIST/AA:Farhad Bruno MD Performed by:Anesthesiologist Preprocedure: patient identified, IV checked, site and side verified, risks and benefits discussed, procedure verified, surgical consent completed, patient position confirmed, monitors and equipment checked, pre-op evaluation completed and coagulation status reviewed Patient Position:Sitting Prep: ChloraPrep Monitoring:Blood pressure monitoring, continuous pulse oximetry, CO2 and heart rate Approach:Right paramedian Interspace:T6-7 Injection Technique:LUIS saline Needle Type:Tuohy Needle Gauge:17 Catheter at Skin Depth:12 cm Test Dose:Negative Number of Attempts:2 Block Outcome:No apparent complications, patient comfortable and patient tolerated procedure well Post-procedure:Patient returned to supine position Time:02/17/2018 8:00 AM * ANESTHESIA INTUBATION (02/17/2018 9:29 AM SQUADRON WORKER) Narrative Performed At Farhad Bruno MD 02/17/20189:54 AM ANESTHESIA INTUBATION Date/Time: 02/17/2018 8:19 AM Performed by: Farhad Bruno MD Authorized by: Nimco Moy MD Location:OR Urgency:Elective Difficult Airway: No Anesthesiologist:Nimco Moy MD Resident/INSIDE SALES SPECIALIST/AA:Farhad Bruno MD Performed by: resident/INSIDE SALES SPECIALIST/AA Preoxygenated with 100% O2: Yes C-spine Precautions Maintained Throughout: No Mask Ventilation:Easy mask Final Airway Type:Endotracheal airway Final Endotracheal Airway:ETT and ETT - double lumen left Cuffed: Yes Technique Used:Direct laryngoscopy Insertion Site:Oral Blade Type:Yadira Laryngoscope Blade/Videolaryngoscope Blade Size:3 ETT Double Lumen (fr):37 Cuff at minimum occlusion pressure: Yes Measured from:Lips Placement Verified by: CO2 detection, direct visualization, equal breath sounds and fiber optic visualization Laryngoscopic view:Grade IIa - partial view of glottis Rapid Sequence Induction (RSI): No Modified RSI: No Number of Attempts at Approach:1 * XR Chest 2 Vw (02/13/2018 3:44 PM SQUADRON WORKER) Specimen Narrative Performed At [facility], 02/13/2018 [facility] Clinical history:Preoperative testing Technique: PA and lateral views chest. Comparison: None DISCUSSION: The lungs are clear and symmetrically inflated. No pleural effusions. Mild cardiomegaly. Mildly tortuous thoracic aorta. Pulmonary vasculature is normal.The skeleton is grossly intact. IMPRESSION: No acute abnormality. Procedure Note Interface, Radiology Results Incoming - 02/13/2018 3:52 PM SQUADRON WORKER [facility], 02/13/2018 Clinical history: Preoperative testing Technique: PA and lateral views chest. Comparison: None DISCUSSION: The lungs are clear and symmetrically inflated. No pleural effusions. Mild cardiomegaly. Mildly tortuous thoracic aorta. Pulmonary vasculature is normal. The skeleton is grossly intact. IMPRESSION: No acute abnormality. Performing Organization Address City/State/Zipcode Phone Number [facility] [address] [place] [address] * ECG Pre/Post Op (02/13/2018 2:50 PM SQUADRON WORKER) Ventricular 60 [facility] rate Atrial rate 60 [facility] OK interval 162 [facility] QRSD interval 80 [facility] QT interval 426 [facility] QTC interval 426 [facility] P axis 1 50 [facility] QRS axis 1 -67 [facility] T wave axis 42 [facility] EKG impression Normal sinus rhythm-Left [facility] MUSE anterior fascicular block-Abnormal ECG-No previous ECGs available- Specimen Narrative Performed At Performing Organization Address City/State/[place] [address] * Prepare RBC (02/13/2018 2:36 PM SQUADRON WORKER) Pathologist [facility] Product name Apheresis -1 LR #2 [facility] Unit number [id number] [facility] Product code [id number] [facility] Dispense status Returned to BB not transfused [facility] Blood [id number] [place] expiration date [facility] Blood type code 9500 [facility] Blood type O NEGATIVE [facility] Product name Red Cells AS1 Leukored Irrad [facility] Unit number [id number] [facility] Product code [id number] [facility] Dispense status Returned to BB not transfused [facility] Blood [id number] [place] expiration date [facility] Blood type code 9500 [facility] Blood type O NEGATIVE [facility] Specimen Performing Organization Address City/[facility]/Zipcode Phone Number [facility] DEPARTMENT OF [address] [place] [address] PATHOLOGY AND GENOMIC MEDICINE [address] * Type and screen (02/13/2018 2:36 PM SQUADRON WORKER) Pathologist [facility] ABO grouping O [facility] Rh type NEG [facility] Antibody screen NEG [place] (gel) [facility] Specimen Blood Performing Organization Address City/State/[facility] Phone Number [facility] [place] [address] PATHOLOGY AND GENOMIC MEDICINE [address] * Hemoglobin A1c (02/13/2018 2:36 PM SQUADRON WORKER) Pathologist [facility] Hemoglobin A1C 6.5 (H) 4.0 - 5.6 % [place] Comment: YAZIDI HbA1c cutoffs for diagnosing HOSPITAL diabetes: 4.0% - 5.6%=normal 5.7% - 6.4%=increased risk for diabetes (prediabetes) >=6.5%=diabetes Goals for glycemic control (ADA 2016) < 7.0%Target for non adults with diabetes. More or less stringent targets may be appropriate for individual patients. <7.5% Target for Children and adolescents with type 1 diabetes. Specimen Blood Performing Organization Address City/State/Zipcode Phone Number [facility] DEPARTMENT OF [address] [place] [address] PATHOLOGY AND GENOMIC MEDICINE DEMOND COLINDRES [address] [place] [phone] HOSPITAL after 10/02/2017 Insurance Type Payer Benefit Subscriber ID Effective Phone Address Plan / Dates Group HMO [employer] CIGNA xxxxxxxxx 2017-P HEALTH[employer]I resent NG O MCR ADV Advance Directives Patient has advance care planning documents on file. For more information, agata carrera contact: Demond Colindres [address] [place] [address]
[2018-10-03 09:51] LABS: BASOPHILS % 0.6 % (0.0-1.0); EOSINOPHILS # (AUTO) 0.1 (0.0-0.4); EOSINOPHILS % 0.9 % (0.0-6.0); HEMOGLOBIN 12.6 g/dL (12.0-16.0); LYMPHOCYTES % 18.2 % (18.0-39.1); MEAN CORPUSCULAR HEMOGLOBIN 27.8 pg (28-32); MEAN CORPUSCULAR HGB CONC 31.5 g/dL (31-35); MEAN CORPUSCULAR VOLUME 88.3 fL (81-99); MONOCYTES # (AUTO) 0.5 (0.2-0.8); MONOCYTES % 9.9 % (4.4-11.3); NEUTROPHILS # (AUTO) 3.8 (2.1-6.9); PLATELET COUNT 256 x10e3/uL (140-360); RED BLOOD COUNT 4.53 x10e6/uL (3.6-5.1); RED CELL DISTRIBUTION WIDTH 15.9 % (11.7-14.4)
--- NOTE | 2018-10-03 10:01 | Diagnostic Imaging Report ---
Examination: Single AP view of the chest. COMPARISON: None. INDICATION: Tingling all over DISCUSSION: Lines/tubes: None. Lungs: The lungs are well inflated and clear. No pneumonia or pulmonary edema. Pleura: No pleural effusion or pneumothorax. Heart and mediastinum: The heart and the mediastinum are unremarkable. Bones and soft tissues: No acute bony abnormalities. IMPRESSION: 1. No acute cardiopulmonary abnormalities. Signed by: Dr. Partha Mendoza M.D. on 10/03/2018 9:58 AM
[2018-10-03 10:06] LABS: BILIRUBIN,URINE NEGATIVE (NEGATIVE); CLARITY,URINE CLEAR (CLEAR); COLOR,URINE YELLOW (YELLOW); KETONES,URINE NEGATIVE (NEGATIVE); LEUKOCYTE ESTERASE ,URINE NEGATIVE (NEGATIVE); NITRITE,URINE NEGATIVE (NEGATIVE); PROTEIN,URINE DIPSTICK NEGATIVE (NEGATIVE); URINE UROBILINOGEN 0.2 mg/dL (0.2 - 1)
[2018-10-03 10:10] LABS: ALBUMIN 3.7 g/dL (3.5-5.0); ALBUMIN/GLOBULIN RATIO 1.1 (0.8-2.0); ANION GAP 16.8 mmol/L (8-16); BACTERIA,URINE RARE /HPF; CALCIUM 9.9 mg/dL (8.4-10.2); CREATININE, SERUM 1.22 mg/dL (0.57-1.11); POTASSIUM 3.8 mmol/L (3.5-5.1); WBC,URINE (MAN) 0-5 /HPF (0-5)
[2018-10-03 10:11] LABS: EPITHELIAL CELLS,URINE RARE /LPF
--- NOTE | 2018-10-03 10:12 | Diagnostic Imaging Report ---
History:Maximo, liz Comparison studies:CT head 10/30/2017 Technique: Axial images were obtained from the skull base to the vertex. Coronal and sagittal images reconstructed from the axial data. Intravenous contrast: None Dose modulation, iterative reconstruction, and/or weight based adjustment of the mA/kV was utilized to reduce the radiation dose to as low as reasonably achievable. Findings: Scalp/skull: No abnormalities. Extra-axial spaces: No masses. No fluid collections. Brain sulci: Mildly prominent. Ventricles: Mild compensatory dilatation. No hydrocephalus. Parenchyma: Few hypodensities in the supratentorial white matter are small vessel ischemic changes. No masses, hemorrhage, acute or chronic cortical vascular insults. Sellar/suprasellar region: No abnormalities. Craniocervical junction: Patent foramen magnum. No Chiari one malformation. Incidental findings: Atherosclerotic calcifications in the carotid siphons and vertebral arteries . Impression: No acute abnormalities. Chronic findings: 1. Mild generalized volume loss. 2. Mild supratentorial white matter small vessel ischemic changes. Signed by: DR Demarco Campbell M.D. on 10/03/2018 10:08 AM
== END 2018-10-03 11:18 | disposition home or self-care (01) ==
LOC: ER 09:08
DX: R20.2 Paresthesia of skin (principal); I10 Essential (primary) hypertension; E11.9 Type 2 diabetes mellitus without complications; N18.9 Chronic kidney disease, unspecified; E78.5 Hyperlipidemia, unspecified; J44.9 Chronic obstructive pulmonary disease, unspecified; K21.9 Gastro-esophageal reflux disease without esophagitis
CPT/HCPCS: 36415; 70450; 71045; 80053; 81001; 83735; 85025; 99284

== ENCOUNTER 2020-06-24 09:13 | Emergency (ER) | payer MEDICARE ==
[~2020-06-24] VITALS: Ht 162.6 cm; Wt 75.3 kg
[2020-06-24 11:00] LABS: BASOPHILS % 0.4 % (0.0-1.0); EOSINOPHILS # (AUTO) 0.1 (0.0-0.4); EOSINOPHILS % 0.4 % (0.0-6.0); HEMATOCRIT 40.3 % (34.2-44.1); HEMOGLOBIN 12.7 g/dL (12.0-16.0); MEAN CORPUSCULAR HEMOGLOBIN 27.8 pg (28-32); MEAN CORPUSCULAR HGB CONC 31.5 g/dL (31-35); MEAN CORPUSCULAR VOLUME 88.2 fL (81-99); MONOCYTES # (AUTO) 0.9 (0.2-0.8); MONOCYTES % 7.7 % (4.4-11.3); NEUTROPHILS # (AUTO) 9.3 (2.1-6.9); NEUTROPHILS % 82.1 % (38.7-80.0); PLATELET COUNT 249 x10e3/uL (140-360); RED BLOOD COUNT 4.57 x10e6/uL (3.6-5.1); RED CELL DISTRIBUTION WIDTH 15.9 % (11.7-14.4)
[2020-06-24 11:13] LABS: INR 0.87; PROTHROMBIN TIME 12.4 seconds (11.9-14.5)
[2020-06-24 11:14] LABS: PARTIAL THROMBOPLASTIN TIME 35.9 seconds (23.8-35.5)
[2020-06-24 11:17] LABS: ALBUMIN 4.1 g/dL (3.5-5.0); ALBUMIN/GLOBULIN RATIO 1.2 (0.8-2.0); ANION GAP 15.2 mmol/L (8-16); CALCIUM 9.6 mg/dL (8.4-10.2); CREATININE, SERUM 1.13 mg/dL (0.57-1.11); MAGNESIUM 1.7 MG/DL (1.3-2.1); POTASSIUM 4.2 mmol/L (3.5-5.1)
[2020-06-24 11:23] LABS: CREATINE KINASE MB 1.1 ng/mL (0-5.0)
[2020-06-24 11:51] LABS: CLARITY,URINE CLEAR (CLEAR); COLOR,URINE YELLOW (YELLOW); KETONES,URINE NEGATIVE (NEGATIVE); LEUKOCYTE ESTERASE ,URINE NEGATIVE (NEGATIVE); NITRITE,URINE NEGATIVE (NEGATIVE); PROTEIN,URINE DIPSTICK NEGATIVE (NEGATIVE); URINE UROBILINOGEN 0.2 mg/dL (0.2 - 1)
[2020-06-24 12:01] LABS: BACTERIA,URINE RARE /HPF; EPITHELIAL CELLS,URINE RARE /LPF; RBC,URINE 0-5 /HPF (0-5); WBC,URINE (MAN) 0-5 /HPF (0-5)
== END 2020-06-24 13:37 | disposition home or self-care (01) ==
LOC: ER 10:00
DX: J44.9 Chronic obstructive pulmonary disease, unspecified (principal); R94.31 Abnormal electrocardiogram [ECG] [EKG]; E11.65 Type 2 diabetes mellitus with hyperglycemia; I10 Essential (primary) hypertension; E78.5 Hyperlipidemia, unspecified; Z20.822 Contact with and (suspected) exposure to COVID-19
CPT/HCPCS: 36415; 71045; 80053; 81001; 82550; 82553; 83735; 83880; 84484; 85025; 85610; 85730; 87086; 93005; 99284; U0002

== ENCOUNTER → 2020-08-01 | Outpatient (CLI) | payer MEDICARE ==
[~2020-08-01] MED LIST changes: +ASPIRIN325 MG PO; +ATORVASTATIN CA40 MG; +LOPRESSOR25 MG PO; +MELOXICAM15 MG PO; +METHYLPREDNISOLO4 M1; +MONTELUKAST SOD10 MG; +REGADENOSON 0.4 MG/5 ML SYR IV ONE
== END ==
LOC: NM 08:56
PROVIDERS: ATTEND Internal Medicine
DX: R07.9 Chest pain, unspecified (principal)
CPT/HCPCS: 78452; 93017; 93306; A9502; J2785

== ENCOUNTER → 2020-09-19 | Outpatient (CLI) | payer MEDICARE ==
[~2020-09-19] MED LIST changes: +IOPAMIDOL 370 MG/ML 200 ML INFUS..BTL INJ ONE; -REGADENOSON 0.4 MG/5 ML SYR IV ONE; +SODIUM CHLORIDE 0.9% 50ML 50 ML ONE
== END ==
LOC: CT 09:50
PROVIDERS: ATTEND Internal Medicine Critical Care Medicine
DX: Z85.118 Personal history of other malignant neoplasm of bronchus and lung (principal)
CPT/HCPCS: 71260; Q9967

== ENCOUNTER → 2021-12-24 | Outpatient (CLI) | payer OTHER ==
[~2021-12-24] MED LIST changes: +IOPAMIDOL 370 MG/ML 100 ML INFUS..BTL INJ ONE; -IOPAMIDOL 370 MG/ML 200 ML INFUS..BTL INJ ONE; +SODIUM CHLORIDE 0.9% 500ML 500 ML ONE; -SODIUM CHLORIDE 0.9% 50ML 50 ML ONE
[2021-12-24 08:28] LABS: CREATININE, SERUM 1.22 mg/dL (0.57-1.11)
== END ==
LOC: CT 07:04
PROVIDERS: ATTEND Internal Medicine Critical Care Medicine
DX: R91.8 Other nonspecific abnormal finding of lung field (principal); Z85.118 Personal history of other malignant neoplasm of bronchus and lung
CPT/HCPCS: 36415; 71260; 82565; 84520; 96360; J7040; Q9967